=== PATIENT | female | born 1995 | race Two or more races ===

== ENCOUNTER 2018-09-30 09:57 | Emergency (ER) | payer SELFPAY ==
[2018-09-30 10:06] VITALS: BP 136/88; PULSE 78; TEMP 98.6; BMI 29.9
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
== END 2018-09-30 12:27 | disposition home or self-care (01) ==
LOC: JERFT 09:57
DX: T20.16XA Burn of first degree of forehead and cheek, initial encounter (principal); X10.2XXA Contact with fats and cooking oils, initial encounter; Y93.G3 Activity, cooking and baking; Y92.000 Kitchen of unspecified non-institutional (private) residence as the place of occurrence of the external cause
CPT/HCPCS: 99281-25